=== PATIENT | female | born 1935 | race Two or more races ===

== ENCOUNTER 2017-11-04 21:44 | Emergency (ER) | payer MEDICARE, OTHER ==
[~2017-11-04] VITALS: Ht 157.5 cm; Wt 72.6 kg
[2017-11-04 21:45] VITALS: BP 206/59
[2017-11-04 22:42] LABS: BASOPHILS % (AUTO) 1.4 % (0.0-2.0); EOSINOPHILS % (AUTO) 0.3 % (0.0-3.0); HEMATOCRIT 41.6 % (37.0-47.0); HEMOGLOBIN 13.7 G/DL (12.0-16.0); LYMPHOCYTES % (AUTO) 35.5 % (20.0-45.0); MEAN CORPUSCULAR VOLUME 84 FL (80-99); MONOCYTES % (AUTO) 7.3 % (1.0-10.0); NEUTROPHILS % (AUTO) 55.5 % (45.0-75.0); PLATELET COUNT 228 K/UL (150-450); RED BLOOD COUNT 4.96 M/UL (4.20-5.40); WHITE BLOOD COUNT 8.3 K/UL (4.8-10.8)
[2017-11-04 22:44] LABS: INR 0.9 (0.9-1.1)
[2017-11-04 22:45] LABS: ANION GAP 12 mmol/L (5-15); BLOOD UREA NITROGEN 9 mg/dL (7-18); CALCIUM 9.5 MG/DL (8.5-10.1); CARBON DIOXIDE 26 MMOL/L (21-32); CHLORIDE 89 MMOL/L (98-107); CREATININE 0.8 MG/DL (0.55-1.30); POTASSIUM 3.1 MMOL/L (3.5-5.1); SODIUM 127 MMOL/L (136-145)
[2017-11-04 22:51] LABS: APPEARANCE,URINE CLEAR; BILIRUBIN, URINE NEGATIVE (NEGATIVE); COLOR,URINE PALE YELLOW; GLUCOSE, URINE (UA) 2+ (NEGATIVE); KETONES,URINE NEGATIVE (NEGATIVE); LEUKOCYTE ESTERASE ,URINE NEGATIVE (NEGATIVE); NITRITE,URINE NEGATIVE (NEGATIVE); PH,URINE 6.5 (4.5-8.0); PROTEIN,URINE 1+ (NEGATIVE); UROBILINOGEN,URINE NORMAL MG/DL (0.0-1.0)
[2017-11-04 22:55] LABS: ALANINE AMINOTRANSFERASE 71 U/L (12-78); ALBUMIN 4.1 G/DL (3.4-5.0); ALBUMIN/GLOBULIN RATIO 0.9 (1.0-2.7); ALKALINE PHOSPHATASE 149 U/L (46-116); ASPARTATE AMINO TRANSFERASE 43 U/L (15-37); BILIRUBIN,TOTAL 0.3 MG/DL (0.2-1.0)
[2017-11-04] MEDS ORDERED: UNOBMED (23:03)
[2017-11-04] MEDS ORDERED: levETIRAcetam 1,500 MG in D5W 95 ML IVPB ONE (23:15)
--- NOTE | 2017-11-04 23:43 | Emergency Room Report ---
History of Present Illness General Chief Complaint: Headache Source: Family Member, EMS Present Illness HPI 82-year-old female with hypertension diabetes presenting with headache and altered mental status. He states that patient was at [facility] and then suddenly just fell and became unresponsive. Patient is on any blood thinners. Last normal was 9 PM at [facility]. Allergies: Coded Allergies: No Known Allergies (Unverified , 11/04/17) Patient History Past Medical History: see triage record Past Surgical History: none Pertinent Family History: none Last Menstrual Period: none Reviewed Nursing Documentation: PMH: Agreed; PSxH: Agreed Nursing Documentation-PMH Hx Hypertension: Yes Review of Systems All Other Systems: limited Physical Exam Vital Signs Date Time Temp Pulse Resp B/P (MAP) Pulse Ox O2 Delivery O2 Flow Rate FiO2 11/04/17 21:34 97.8 90 18 220/110 99 Room Air 97.9 11/04/17 22:52 100 Sp02 EP Interpretation: reviewed, normal General Appearance: other - unresponsive Head: normocephalic, atraumatic Eyes: bilateral eye other - 2 mm pupils that are nonreactive, EOM not intact ENT: other - drooling Neck: normal inspection Respiratory: other - drooling no gag reflex, not hypoxic Cardiovascular #1: normal inspection, regular rate, rhythm, no edema, normal capillary refill Cardiovascular #2: 2+ radial (R), 2+ radial (L) Gastrointestinal: other - soft ND Musculoskeletal: other - no signs trauma, FROM passive Neurologic: other - unresponsive, no gag or corneal reflex, does not move to pain Psychiatric: other Skin: normal inspection, normal color, no rash, warm/dry, well hydrated, normal turgor Procedures Critical Care Time Critical Care Time 40 minutes of CC time 82-year-old female unresponsive found to have intracranial bleed VS: Hypertensive PLAN: IV access, labs, CT head, administration of antihypertensive, Keppra, mannitol Anticipate transfer to [facility] for neurosurgery CC time also includes review of labs, review of EMR, discussion with family and paperwork from SNF, d/w hospitalist CC could include dosing of pressors, additional Abx CC time does not include procedures Intubation Intubation : Consent: Emergent Intubation Method: orotracheal Tube Size (cm): 7.5 Breath Sounds after Intubation: equal Intubation Complications: no complications Post Intubation Xray: Yes Attempts: One Patient Tolerated: Well Complications: None Medical Decision Making Diagnostic Impression: Primary Impression: Intracerebral hemorrhage ER Course 82-year-old female with altered mental status DDX: Electrolyte disturbance, ACS, infection, pneumonia, UTI, intracranial bleed, stroke Plan: Obtain labs, ua, EKG, CXR CT head ER course: Found to have intra-cerebral bleed, patient given mannitol, Keppra, antihypertensive medication I spoke to Dr. Mcnamara from [facility], neuro drop wire hanger,, I discussed the case with him, states that he will not except transfer of patient due to "old age and extent of the head bleeding". I told him that patient's normal mental status is ANO 4 and she is fully functional, however he is still refusing transfer. I spoke to Dr. Espinosa who has accepted patient for transfer to [facility] Last BP 163/55 Extensive conversation held with family regarding patients condition Disposition: Patient is to be transferred to [facility] under neuro drop wire hanger Dr Espinosa Transferred with ALS Please note that this Emergency Department Report was dictated using [employer] finishing technology software, occasionally this can lead to erroneous entry secondary to interpretation by the dictation equipment. EKG Diagnostic Results EP Interpretation: Yes Rate: normal Rhythm: NSR ST Segments: Prolonged QT, T-wave inversion in aVL ASA given to patient: No Rhythm Strip EP Interpretation: Yes Rate: 59 Rhythm: NSR, no PVCs, no ectopy Chest X-ray CXR: Ordered: Yes 1 view Indication: Altered mental status EP interpretation: Yes Interpretation: No consolidation, no effusion, no PTX, no acute cardiopulmonary disease, ET tube in appropriate position Impression: No acute disease Electronically signed by Ramsey Veras MD Laboratory Tests Test 11/04/17 22:10 11/04/17 22:45 White Blood Count 8.3 K/UL (4.8-10.8) Red Blood Count 4.96 M/UL (4.20-5.40) Hemoglobin 13.7 G/DL (12.0-16.0) Hematocrit 41.6 % (37.0-47.0) Mean Corpuscular Volume 84 FL (80-99) Mean Corpuscular Hemoglobin 27.7 PG (27.0-31.0) Mean Corpuscular Hemoglobin Concent 33.1 G/DL (32.0-36.0) Red Cell Distribution Width 12.0 % (11.6-14.8) Platelet Count 228 K/UL (150-450) Mean Platelet Volume 6.8 FL (6.5-10.1) Neutrophils (%) (Auto) 55.5 % (45.0-75.0) Lymphocytes (%) (Auto) 35.5 % (20.0-45.0) Monocytes (%) (Auto) 7.3 % (1.0-10.0) Eosinophils (%) (Auto) 0.3 % (0.0-3.0) Basophils (%) (Auto) 1.4 % (0.0-2.0) Prothrombin Time 9.2 SEC (9.30-11.50) L Prothrombin Time INR 0.9 (0.9-1.1) PTT 25 SEC (23-33) Sodium Level 127 MMOL/L (136-145) L Potassium Level 3.1 MMOL/L (3.5-5.1) L Chloride Level 89 MMOL/L (98-107) L Carbon Dioxide Level 26 MMOL/L (21-32) Anion Gap 12 mmol/L (5-15) Blood Urea Nitrogen 9 mg/dL (7-18) Creatinine 0.8 MG/DL (0.55-1.30) Estimate Glomerular Filtration Rate mL/min (>60) Glucose Level 283 MG/DL (74-106) H Calcium Level 9.5 MG/DL (8.5-10.1) Total Bilirubin 0.3 MG/DL (0.2-1.0) Aspartate Amino Transferase (AST) 43 U/L (15-37) H Alanine Aminotransferase (ALT) 71 U/L (12-78) Alkaline Phosphatase 149 U/L (46-116) H Troponin I 0.000 ng/mL (0.000-0.056) Pro-B-Type Natriuretic Peptide 151 pg/mL (0-125) H Total Protein 8.9 G/DL (6.4-8.2) H Albumin 4.1 G/DL (3.4-5.0) Globulin 4.8 g/dL Albumin/Globulin Ratio 0.9 (1.0-2.7) L Urine Color Pale yellow Urine Appearance Clear Urine pH 6.5 (4.5-8.0) Urine Specific [place] 1.005 (1.005-1.035) Urine Protein 1+ (NEGATIVE) H Urine Glucose (UA) 2+ (NEGATIVE) H Urine Ketones Negative (NEGATIVE) Urine Occult Blood Negative (NEGATIVE) Urine Nitrite Negative (NEGATIVE) Urine Bilirubin Negative (NEGATIVE) Urine Urobilinogen Normal MG/DL (0.0-1.0) Urine Leukocyte Esterase Negative (NEGATIVE) Urine RBC 0-2 /HPF (0 - 2) Urine WBC 0-2 /HPF (0 - 2) Urine Squamous Epithelial Cells Few /LPF (NONE/OCC) Urine Amorphous Sediment Few /LPF (NONE) H Urine Bacteria Few /HPF (NONE) CT/MRI/US Diagnostic Results CT/MRI/US Diagnostic Results : Imaging Test Ordered: CT HEAD Impression Extensive intracranial hemorrhage involving the bilateral ventricles, third ventricle and fourth ventricle, which did with dilation, largest hemorrhage centered and cerebellar measuring 4 x 6 x 3 no midline shift Last Vital Signs Date Time Temp Pulse Resp B/P (MAP) Pulse Ox O2 Delivery O2 Flow Rate FiO2 11/04/17 22:54 64 16 100 11/04/17 22:52 Mechanical Ventilator 11/04/17 21:45 206/59 97 11/04/17 21:34 97.8 97.9 Disposition: XFER T-[facility] Condition: Critical Referrals: UNKNOWN (PCP) Ramsey Veras M.D. November 04, 2017 23:43
[2017-11-04 23:45] VITALS: BP 173/61
[2017-11-04] MEDS ORDERED: Labetalol 5mg/ml 20ml vial IV ONE (23:45)
[2017-11-05] MEDS ORDERED: niCARdipine HCl 200 ML IV ONE (00:15)
[2017-11-05 00:44] VITALS: BP 147/50
[2017-11-05] MEDS ORDERED: Labetalol 5mg/ml 20ml vial IV ONE (01:45)
[2017-11-05 01:50] VITALS: BP 140/56
[2017-11-05 01:53] VITALS: BP 140/56
--- NOTE | 2017-11-05 09:47 | Diagnostic Imaging Report ---
Indication: Headache Technique: Contiguous 5 mm thick transaxial imaging of the head obtained in a Siemens Sensation [address] scanner. Soft tissue and bone windows generated. Automatic Exposure Control was utilized. Total Dose length Product (DLP): 1358.[address] Dose Index Volume (CTDIvol): 70.38 mGy Comparison: none Findings: There is extensive acute hemorrhage with the large hematoma demonstrated within the vermis of the cerebellum. The hematoma at the vermis measures approximately 5.5 x 4.0 cm transverse and AP dimensions respectively with a craniocaudal measurement of about 3 cm. Surrounding edema and mass effect, fourth ventricular extension of blood noted. There is blood in the third ventricle and lateral ventricles as well. The basal cisterns are largely effaced. The suprasellar cistern is open. There is hydrocephalus with dilatation of the lateral and third ventricles. There is adjacent subarachnoid blood within the cerebellar fissures bilaterally. Generalized atrophy of the brain is present with prominence of the cortical sulci bilaterally. IMPRESSION: Acute intracranial hemorrhage emanating from the cerebellar vermis extending into the ventricles with associated hydrocephalus and basal cistern effacement. Critical value communication. Findings were discussed via telephone with Dr. fernández in the emergency department 11/04/2017 at 23:34 by the stat rad physician Dr. Clark Stiles. The CT scanner at [facility] is accredited by the [employer] and the scans are performed using dose optimization techniques as appropriate to a performed exam including Automatic Exposure control.
--- NOTE | 2017-11-05 10:05 | Diagnostic Imaging Report ---
Indication: Chest pain Comparison: None A single view chest radiograph was obtained. Findings: Endotracheal tube is low-lying the level of the leanne and should be pulled up slightly. There is perihilar density at the left lung base which may be pneumonia or atelectasis. Follow-up recommended. Heart size is normal. The bones are osteopenic. IMPRESSION: Low-lying endotracheal tube which should be pulled up. Left perihilar atelectasis versus infiltrate. Follow-up and clinical correlation recommended
--- NOTE | 2017-11-05 15:54 | Cardiology Report ---
APPROVED REPORT EKG Measurement Heart [id number] ID [id number] Sinus bradycardia Otherwise normal ECG
== END 2017-11-05 01:53 | disposition short-term general hospital (02) ==
LOC: EDBD 21:44 → EMR 22:32
DX: I61.9 Nontraumatic intracerebral hemorrhage, unspecified (principal); I10 Essential (primary) hypertension; E11.9 Type 2 diabetes mellitus without complications
CPT/HCPCS: 31500; 36415; 70450; 71045; 80053; 81003; 82962; 83880; 84484; 85025; 85610; 85730; 93005; 94002; 94664; 96374; 96375; 99291; J1953; J2150; 99285